=== PATIENT | female | born 1980 | race Caucasian/White ===

== ENCOUNTER 2018-04-07 12:54 | Emergency (ER) | payer MEDICAID ==
[~2018-04-07] VITALS: Ht 157.5 cm; Wt 76.4 kg
[~2018-04-07 12:54] MED LIST: GLIP5TAB4 PO; METF500T PO
[2018-04-07 13:03] VITALS: BP 126/89
--- NOTE | 2018-04-07 13:08 | NUR ---
Patient ambulated to bed 1. RN evaluating patient at bedside.
--- NOTE | 2018-04-07 13:10 | NUR ---
REPORT GIVEN TO RAJI RODAS
--- NOTE | 2018-04-07 13:15 | NUR ---
PATIENT PRESENTS TO ED WITH NUMBNESS AND TINGLING OF BILATERAL ARMS AND FACE X 1 DAY. PATIENT STATES IT STARTED LAST NIGH IN THE ARMS AND TODAY IT SPREAD TO HER FACE. PATIENT NEGATIVE FOR RADIO MECHANIC HELPER ASYMETRY, NEGATIVE FOR FACIAL ASYMETRY. DENIES N/V/D; SKIN IS PINK/WARM/DRY; AAOX4 WITH EVEN AND STEADY GAIT; LUNGS CLEAR BL; HR EVEN AND REGULAR; PT DENIES ANY FEVER, CP, SOB, OR COUGH AT THIS TIME; PATIENT STATES PAIN OF 0/10 AT THIS TIME; VSS; PATIENT POSITIONED FOR COMFORT; HOB ELEVATED; BEDRAILS UP X1; BED DOWN. ER MD MADE AWARE OF PT STATUS.
[2018-04-07] MEDS ORDERED: NACL 0.9% 1,000 ML IV SCH (13:41)
[2018-04-07] MEDS ORDERED: LORazepam 2 MG/ML VIAL IVP ONE (13:45)
[2018-04-07 14:07] LABS: BASOPHILS # (AUTO) 0.1 K/uL (0.00-0.22); BASOPHILS % (AUTO) 1.4 % (0.0-2.0); EOSINOPHILS % (AUTO) 0.1 % (0.0-4.0); HEMATOCRIT 36.7 % (36-48); HEMOGLOBIN 12.7 g/dL (12.0-16.0); MEAN CORPUSCULAR HEMOGLOBIN 29 pg (27-31); MEAN CORPUSCULAR HGB CONC 35 g/dL (33-37); MEAN CORPUSCULAR VOLUME 84.5 fL (80-94); MONOCYTES # (AUTO) 0.8 K/uL (0.8-1.0); MONOCYTES % (AUTO) 8.8 % (1.7-9.3); NEUTROPHILS # (AUTO) 6.2 K/uL (1.8-7.7); NEUTROPHILS % (AUTO) 67.7 % (42.2-75.2); PLATELET COUNT (AUTO) 210 K/uL (140-450); RED BLOOD CELL COUNT(AUTO) 4.35 MIL/uL (4.20-5.40); RED CELL DISTRIBUTION WIDTH 13.2 % (11.6-13.7); WHITE BLOOD COUNT (AUTO) 9.2 K/uL (4.8-10.8)
--- NOTE | 2018-04-07 14:18 | NUR ---
Patient taken to CT scan by
[2018-04-07 14:22] LABS: MAGNESIUM 1.4 mg/dL (1.8-2.4)
--- NOTE | 2018-04-07 14:25 | NUR ---
Patient returned from CT scan. RN re-evaluating patient at bedside.
[2018-04-07 14:28] LABS: ALBUMIN 3.6 g/dL (3.4-5.0); ASPARTATE AMINOTRANSFERASE 21 U/L (15-37); CARBON DIOXIDE 27.2 mmol/L (21-32); CHLORIDE 103 mmol/L (98-107); CREATININE 0.8 mg/dL (0.6-1.3); GFR ARICAN-AMERICAN 103 mL/min (>90); GLUCOSE 227 mg/dL (74-106); SODIUM SERUM 143 mmol/L (136-145); TOTAL BILIRUBIN 0.5 mg/dL (0.0-1.0); UREA NITROGEN, BLOOD 6 mg/dL (7-18)
[2018-04-07 14:29] LABS: ANION GAP 15.8 (8-16)
[2018-04-07] MEDS ORDERED: POTASSIUM CHLORIDE 10 MEQ TABER PO ONE (14:55)
[2018-04-07] MEDS ORDERED: MAGNESIUM SULFATE 50% 1,000 MG in NACL 0.9% 50 ML IV ONE (14:55)
--- NOTE | 2018-04-07 14:56 | NUR ---
Note undone in EDM - 04/07/18 at 1459 by ALANA PATIENT PRESENTS TO ED WITH NUMBNESS AND TINGLING OF BILATERAL ARMS AND FACE X 1 DAY. PATIENT STATES IT STARTED LAST NIGH IN THE ARMS AND TODAY IT SPREAD TO HER FACE. PATIENT NEGATIVE FOR HOTBED OPERATOR ASYMETRY, NEGATIVE FOR FACIAL ASYMETRY. DENIES N/V/D; SKIN IS PINK/WARM/DRY; AAOX4 WITH EVEN AND STEADY GAIT; LUNGS CLEAR BL; HR EVEN AND REGULAR; PT DENIES ANY FEVER, CP, SOB, OR COUGH AT THIS TIME; PATIENT STATES PAIN OF 0/10 AT THIS TIME; VSS; PATIENT POSITIONED FOR COMFORT; HOB ELEVATED; BEDRAILS UP X1; BED DOWN. ER MD MADE AWARE OF PT STATUS.
[2018-04-07] MEDS ORDERED: MAGNESIUM SULFATE 50% 1000 MG/2 ML VIAL IV ONE (15:05)
[2018-04-07 15:21] LABS: BILIRUBIN,URINE NEGATIVE (NEGATIVE); BLOOD, URINE TRACE-I (NEGATIVE); COLOR,URINE YELLOW (YELLOW); LEUKOCYTE ESTERASE ,URINE NEGATIVE (NEGATIVE); NITRITE, URINE POSITIVE (NEGATIVE); UGLUCOSE 3+ (NEGATIVE)
[2018-04-07 15:32] LABS: APPEARANCE,URINE CLOUDY (CLEAR)
[2018-04-07 15:39] LABS: BARBITURATE, URINE NEG. ng/ml (NEG <=200); BENZODIAZEPINE, URINE NEG. ng/mL (NEG <=200); CANNABINOID, URINE NEG. ng/mL (NEG <=50); COCAINE, URINE NEG. ng/mL (NEG <=300); OPIATE, URINE NEG. ng/mL (NEG <=2000); PHENCYCLIDINE SCREEN,URINE NEG. ng/mL (NEG <=25)
[2018-04-07 16:08] LABS: RBC,URINE 3-10 (FEW) /HPF (0-5)
--- NOTE | 2018-04-07 16:18 | NUR ---
Patient discharged with v/s stable. Written and verbal after care instructions given and explained. Patient alert, oriented and verbalized understanding of instructions. Ambulatory with steady gait. All questions addressed prior to discharge. ID band removed. Patient advised to follow up with PMD. Rx of VISTARIL given. Patient educated on indication of medication including possible reaction and side effects. Opportunity to ask questions provided and answered.
[2018-04-07 16:28] VITALS: BP 133/66
== END 2018-04-07 16:18 | disposition home or self-care (01) ==
LOC: MED 12:54
DX: R20.2 Paresthesia of skin (principal); E87.6 Hypokalemia; E83.42 Hypomagnesemia; E11.9 Type 2 diabetes mellitus without complications; F41.9 Anxiety disorder, unspecified
CPT/HCPCS: 36415; 70450; 71045; 80053; 80305; 81001; 82150; 82550; 83690; 83735; 84484; 84703; 85025; 87086; 87186; 93005; 96365; 96375; 99285; G0482; J2060; J3475; J7030

== ENCOUNTER 2019-05-26 17:20 | Emergency (ER) | payer MEDICAID ==
[~2019-05-26] VITALS: Ht 157.5 cm; Wt 75.7 kg
[2019-05-26 17:40] VITALS: BP 114/63
--- NOTE | 2019-05-26 17:47 | NUR ---
PT AMBULATED TO LOBBY AT THIS TIME, VSS, BLEEDING CONTROLLED WITH BANDAIDE
--- NOTE | 2019-05-26 19:25 | NUR ---
PT AMBULATED TO BED
--- NOTE | 2019-05-26 19:27 | NUR ---
38/F PRESENTED TO ER. AMBULATORY. STEADY GAIT. C/O LACERATION TO RT 3RD DIGIT. PT WAS CUTTING FOOD WHEN SHE CUT HER FINGER 05/26/19. PAIN 01/22. BLEEDING CONTROLED WITH BANDAID. TOOK NO MEDS TO RELIEVE PAIN. LAST TETANUS IN 2013. HX DM, HLD. RX METFORMIN, GLIPIZIDE, JANUVIA, ATROVASTATIN, VIT D, LOSARTAN
[2019-05-26] MEDS ORDERED: LIDOCAINE 1% 500 MG/50 ML VIAL INJ SCH (20:20)
[2019-05-26] MEDS ORDERED: ACETAMINOPHEN 325 MG TAB PO ONE (20:20)
[2019-05-26] MEDS ORDERED: LIDOCAINE MPF 1% - 5 mL VIAL 10 ML ONE (20:45)
--- NOTE | 2019-05-26 21:05 | NUR ---
AT BEDSIDE FOR SUTURE
[2019-05-26] MEDS ORDERED: NEOMYCIN/POLYMYXIN/BACITRACIN 0.9 GM/1 PKT TP ONE (21:35)
[2019-05-26 21:46] VITALS: BP 113/56
--- NOTE | 2019-05-26 21:46 | NUR ---
Patient discharged with v/s stable. Written and verbal after care instructions given and explained. Patient alert, oriented and verbalized understanding of instructions. Ambulatory with steady gait. All questions addressed prior to discharge. ID band removed. Patient advised to follow up with PMD. Rx of IBUPROFEN, BACITRACIN given. Patient educated on indication of medication including possible reaction and side effects. Opportunity to ask questions provided and answered. ACCOMPANIED BY .
== END 2019-05-26 21:46 | disposition home or self-care (01) ==
LOC: MED 17:20
DX: S61.212A Laceration without foreign body of right middle finger without damage to nail, initial encounter (principal); E11.9 Type 2 diabetes mellitus without complications; E78.5 Hyperlipidemia, unspecified; Z79.84 Long term (current) use of oral hypoglycemic drugs; W26.0XXA Contact with knife, initial encounter; Y93.89 Activity, other specified; Y92.89 Other specified places as the place of occurrence of the external cause; Y99.8 Other external cause status
CPT/HCPCS: 12001; 82948; 99283; J2001

== ENCOUNTER 2019-09-22 21:38 | Inpatient (IN) | payer MEDICAID ==
[~2019-09-22] VITALS: Ht 157.5 cm; Wt 76.7 kg
[2019-09-22 21:50] VITALS: BP 130/77
--- NOTE | 2019-09-22 22:55 | NUR ---
PT AMBULATED TO ER BED 06
--- NOTE | 2019-09-22 23:10 | NUR ---
38 Y/O FEMALE C/O RIGHT SIDE NUMBNESS AND LEFT SIDE EYE TEARS X 1000 TODAY. FAST DONE: FACIAL DROOPING ON RIGHT SIDE BY MOUTH, ARMS STRENGTH EQUAL AND SYMMETRICAL NO TRIFTING NOTED, SPEECH CLEAR, TIME AT 1000 ONSET. VSS. PT STATES HER LEFT EYE BEEN GETTING TEARY AND SHE SAYS WHEN SHE WAS RINSING HER MOUTH THAT THE MOUTH WASH WAS COMING OUT OF HER RIGHT SIDE OF THE CORNER OF HER MOUTH. WHEN ASKED TO SMILE BOTH FACE MUSCLE SHOWS SYMMETRY. ARMS AND LEG STRENGTH EQUL AND SYMMTRICAL. PERRLA 3MM BRISK BILAT. STEADY GAIT. NKA. PMH: DM
--- NOTE | 2019-09-22 23:33 | NUR ---
Dr. Vela examining patient.
--- NOTE | 2019-09-22 23:38 | NUR ---
RADIOLOGY MADE AWARE OF DR. HAYWARD'S REQUEST FOR STAT CT HEAD
--- NOTE | 2019-09-22 23:52 | NUR ---
PT TAKEN FOR STAT CT
[2019-09-22 23:54] LABS: BASOPHILS % (AUTO) 0.5 % (0.0-2.0); EOSINOPHILS # (AUTO) 0.1 K/uL (0-0.4); EOSINOPHILS % (AUTO) 1.3 % (0.0-4.0); HEMATOCRIT 39.1 % (36-48); HEMOGLOBIN 13.2 g/dL (12.0-16.0); LYMPHOCYTES # (AUTO) 2.8 K/uL (2.5-16.5); LYMPHOCYTES % (AUTO) 37.2 % (20.5-51.1); MEAN CORPUSCULAR HEMOGLOBIN 29 pg (27-31); MEAN CORPUSCULAR HGB CONC 34 g/dL (33-37); MONOCYTES # (AUTO) 0.7 K/uL (0.8-1.0); MONOCYTES % (AUTO) 9.4 % (1.7-9.3); NEUTROPHILS # (AUTO) 3.9 K/uL (1.8-7.7); NEUTROPHILS % (AUTO) 51.6 % (42.2-75.2); PLATELET COUNT (AUTO) 207 K/uL (140-450); RED BLOOD CELL COUNT(AUTO) 4.49 MIL/uL (4.20-5.40); RED CELL DISTRIBUTION WIDTH 12.8 % (11.6-13.7); WHITE BLOOD COUNT (AUTO) 7.5 K/uL (4.8-10.8)
--- NOTE | 2019-09-22 23:54 | NUR ---
BLOOD DRAWS DONE. PT TRANSFER TO CT VIA [facility].
[2019-09-23 00:25] LABS: ALBUMIN 3.9 g/dL (3.4-5.0); ANION GAP 16.4 (8-16); CARBON DIOXIDE 25.3 mmol/L (21-32); POTASSIUM 3.7 mmol/L (3.5-5.1); TOTAL BILIRUBIN 0.4 mg/dL (0.0-1.0)
[2019-09-23 00:33] LABS: CREATINE KINASE MB 0.4 ng/mL (0-3.6)
--- NOTE | 2019-09-23 00:46 | NUR ---
Jama salter in [facility] - 09/23/19 at 0052 by ERIK PT RETURN FROM CT
--- NOTE | 2019-09-23 00:46 | NUR ---
PT RETURNED FROM CT VIA [facility].
[2019-09-23 00:47] LABS: PROTHROMBIN TIME 9.1 secs (10.8-13.4)
--- NOTE | 2019-09-23 00:57 | NUR ---
SRIKANTH HANSON AT BEDSIDE DOING EKG.
[2019-09-23] MEDS ORDERED: MORPHINE SULFATE 2 MG/ML SYR IVP PRN (02:55)
[2019-09-23] MEDS ORDERED: ZOLPIDEM 5 MG TAB PO PRN (02:55)
[2019-09-23] MEDS ORDERED: HYDROcodone/APAP 5/325 MG 1 TAB TAB PO PRN (02:55)
[2019-09-23] MEDS ORDERED: DEXTROSE 50% 50 ML SYR IVP PRN ×2 (02:55→10:00)
[2019-09-23] MEDS ORDERED: DOCUSATE SODIUM 100 MG GELCAP PO PRN (02:55)
[2019-09-23] MEDS ORDERED: LORazepam 2 MG/ML VIAL IM/IVP PRN (02:55)
[2019-09-23] MEDS ORDERED: INSULIN LISPRO SLIDING SCALE 100 UNITS/ML VIAL SUBQ PRN (02:55)
[2019-09-23] MEDS ORDERED: ONDANSETRON 4 MG/2 ML VIAL IM/IVP PRN (02:55)
[2019-09-23] MEDS ORDERED: ASPIRIN 325 MG TAB PO ONE (03:00)
[2019-09-23] MEDS ORDERED: predniSONE 20 MG TAB PO ONE (03:00)
[2019-09-23] MEDS ORDERED: ACYCLOVIR 200 MG CAP PO ONE (03:00)
[2019-09-23] MEDS ORDERED: MECLIZINE 25 MG TAB PO PRN (03:55)
[2019-09-23] MEDS: NACL 0.9% 1,000 ML IV SCH ×2 (04:18→16:22)
--- NOTE | 2019-09-23 04:30 | NUR ---
RT AT BEDSIDE DRAWING ABG.
[2019-09-23 04:54] LABS: BARBITURATE, URINE NEG. ng/ml (NEG <=200); BENZODIAZEPINE, URINE NEG. ng/mL (NEG <=200); CANNABINOID, URINE NEG. ng/mL (NEG <=50); COCAINE, URINE NEG. ng/mL (NEG <=300); OPIATE, URINE NEG. ng/mL (NEG <=2000); PHENCYCLIDINE SCREEN,URINE NEG. ng/mL (NEG <=25)
[2019-09-23 06:04] LABS: BASOPHILS % (AUTO) 0.4 % (0.0-2.0); EOSINOPHILS # (AUTO) 0.1 K/uL (0-0.4); EOSINOPHILS % (AUTO) 1.2 % (0.0-4.0); HEMOGLOBIN 12.8 g/dL (12.0-16.0); LYMPHOCYTES % (AUTO) 24.3 % (20.5-51.1); MEAN CORPUSCULAR HEMOGLOBIN 30 pg (27-31); MEAN CORPUSCULAR HGB CONC 34 g/dL (33-37); MEAN CORPUSCULAR VOLUME 87.4 fL (80-94); MONOCYTES # (AUTO) 0.5 K/uL (0.8-1.0); MONOCYTES % (AUTO) 6.5 % (1.7-9.3); NEUTROPHILS # (AUTO) 5.5 K/uL (1.8-7.7); NEUTROPHILS % (AUTO) 67.6 % (42.2-75.2); PLATELET COUNT (AUTO) 190 K/uL (140-450); RED BLOOD CELL COUNT(AUTO) 4.35 MIL/uL (4.20-5.40); RED CELL DISTRIBUTION WIDTH 13.1 % (11.6-13.7); WHITE BLOOD COUNT (AUTO) 8.1 K/uL (4.8-10.8)
[2019-09-23] MEDS: ACYCLOVIR 200 MG CAP PO SCH ×5 (06:06→20:16)
--- NOTE | 2019-09-23 06:08 | NUR ---
ZOVIRAX GIVEN. INSTRUCTED PT TO BE NPO.
[2019-09-23 06:10] LABS: ANION GAP 15.6 (8-16); CARBON DIOXIDE 23.1 mmol/L (21-32); CREATININE 0.7 mg/dL (0.6-1.3); POTASSIUM 3.7 mmol/L (3.5-5.1)
[2019-09-23] MEDS ORDERED: LOSA50TA66 PO (06:16)
[2019-09-23] MEDS ORDERED: CHOL200035 PO (06:16)
[2019-09-23] MEDS ORDERED: EZET1TAB24 PO (06:16)
[2019-09-23] MEDS ORDERED: SITA100T8 PO (06:16)
--- NOTE | 2019-09-23 06:17 | NUR ---
MED REC DONE.
--- NOTE | 2019-09-23 06:21 | NUR ---
BIANCA ASSESSMENT DONE AT BEDSIDE. ORTHOSTATIC BP TEST: LAYING DOWN BP WAS 117/64 ON RIGHT ARM, AND STANDING UP BP ON RIGHT ARM WAS 120/71.
[2019-09-23 06:24] LABS: CHOL/HDL RATIO 3.7 (1-4.5); MAGNESIUM 1.5 mg/dL (1.8-2.4); PHOSPHORUS 3.6 mg/dL (2.5-4.9); THYROID STIMULATING HORMONE 2.35 uIU/mL (0.34-3.74)
[2019-09-23 06:29] LABS: APPEARANCE,URINE HAZY (CLEAR); BILIRUBIN,URINE NEGATIVE (NEGATIVE); BLOOD, URINE NEGATIVE (NEGATIVE); COLOR,URINE YELLOW (YELLOW); LEUKOCYTE ESTERASE ,URINE NEGATIVE (NEGATIVE); NITRITE, URINE POSITIVE (NEGATIVE); UGLUCOSE 2+ (NEGATIVE)
[2019-09-23 06:56] LABS: RBC,URINE NONE SEEN /HPF (0-5)
[2019-09-23 06:57] LABS: WBC,URINE 0-5 /HPF (0-5)
--- NOTE | 2019-09-23 07:15 | NUR ---
PT ARRIVED ON THE UNIT. PT ARRIVED ON THE UNIT VIA GURNEY. PT AMBULATED WITH A STEADY GAIT TO THE BATHROOM. RECEIVED BEDSIDE REPORT FROM GAS OPERATOR. PT APPEARS STABLE AND IN NO APPARENT DISTRESS. ALL SAFETY MEASURES ARE IN PLACE. ORIENTED PT TO THE UNIT. PERFORMED HEAD TO TOE ASSESSMENT. WILL CONTINUE TO MONITOR.
--- NOTE | 2019-09-23 07:15 | NUR ---
Patient will be admitted to care of dr. de dios. Admited to tele. Will go to room 108b. Belongings list completed. Report to jannette maldonado.
[2019-09-23] MEDS ORDERED: BLOOD GLUCOSE MONITORING 1 DEV DEV FS SCH (07:30)
[2019-09-23 08:00] VITALS: BP 125/71
[2019-09-23] MEDS: predniSONE 20 MG TAB PO SCH (09:07)
--- NOTE | 2019-09-23 09:25 | NUR ---
FREQUENT ROUNDING ON PT PT APPEARS STABLE AND IN NO APPARENT DISTRESS. ALL SAFETY MEASURES ARE IN PLACE WILL CONTINUE TO MONITOR.
--- NOTE | 2019-09-23 10:00 | NUR ---
PATIENT HAS BEEN SCREENED AND CATEGORIZED MODERATE NUTRITION RISK. PATIENT WILL BE SEEN WITHIN 3-5 DAYS OF ADMISSION. 09/25/19 09/27/[address]
--- NOTE | 2019-09-23 11:30 | NUR ---
FREQUENT ROUNDING ON PT PT APPEARS STABLE AND IN NO APPARENT DISTRESS. ALL SAFETY MEASURES ARE IN PLACE WILL CONTINUE TO MONITOR.
[2019-09-23 12:09] VITALS: BP 114/57
[2019-09-23] MEDS: BLOOD GLUCOSE MONITORING 1 DEV DEV FS SCH ×3 (12:24→20:18)
[2019-09-23] MEDS: ACETAMINOPHEN 325 MG TAB PO PRN ×2 (12:25→17:58)
[2019-09-23] MEDS: INSULIN LISPRO SLIDING SCALE 100 UNITS/ML VIAL SUBQ PRN ×3 (12:27→20:20)
--- NOTE | 2019-09-23 13:04 | NUR ---
FREQUENT ROUNDING ON PT PT APPEARS STABLE AND IN NO APPARENT DISTRESS. ALL SAFETY MEASURES ARE IN PLACE WILL CONTINUE TO MONITOR.
--- NOTE | 2019-09-23 15:34 | NUR ---
FREQUENT ROUNDING ON PT PT APPEARS STABLE AND IN NO APPARENT DISTRESS. ALL SAFETY MEASURES ARE IN PLACE WILL CONTINUE TO MONITOR
[2019-09-23 16:05] VITALS: BP 124/69
[2019-09-23] MEDS: MAG SULF 2000 MG/WATER PREMIX 100 ML IV SCH ×2 (16:15→18:00)
--- NOTE | 2019-09-23 17:30 | NUR ---
FREQUENT ROUNDING ON PT PT APPEARS STABLE AND IN NO APPARENT DISTRESS. ALL SAFETY MEASURES ARE IN PLACE WILL CONTINUE TO MONITOR.
--- NOTE | 2019-09-23 19:20 | NUR ---
ENDORSED PT TO PM RN. PT APPEARS STABLE AND IN NO APPARENT DISTRESS. ALL SAFETY MEASURES ARE IN PLACE WILL CONTINUE TO MONITOR.
--- NOTE | 2019-09-23 19:21 | NUR ---
REPORT RECEIVED FROM AM NURSE AT BEDSIDE. PT IN STABLE CONDITION. AAOX4. INTRODUCED SELF TO PT. BOARD UPDATED. NO COMPLAINTS OF PAIN. NO SOB. AFEBRILE. PT IS ITALIAN SPEAKING. PT IS AMBULATORY. IV SITE L AC 24G RUNNING NS@60ML/HR PATENT AND INTACT. SKIN WARM, DRY, AND INTACT WITH NO OPEN WOUNDS. BED LOCKED IN LOW POSITION. CALL [place] WITHIN REACH. SAFETY PRECAUTION IN PLACE. ALL NEEDS MET AT THIS TIME.
[2019-09-23 20:00] VITALS: BP 103/58
--- NOTE | 2019-09-23 20:16 | NUR ---
ZOVIRAX GIVEN PO. BS 242. 4 UNITS OF HUMALOG GIVEN. PT TOLERATED WELL.
--- NOTE | 2019-09-23 22:10 | NUR ---
PT SLEEPING COMFORTABLY BUT AROUSABLE. NO S/S OF DISTRESS NOTED. WILL CONTINUE TO MONITOR.
--- NOTE | 2019-09-23 23:45 | NUR ---
PT SLEEPING COMFORTABLY BUT AROUSABLE. NO S/S OF DISTRESS NOTED. TELE MONITORING. WILL CONTINUE TO MONITOR.
[2019-09-24] VITALS: BP 90/51
--- NOTE | 2019-09-24 01:30 | NUR ---
PT SLEEPING COMFORTABLY BUT AROUSABLE. NO S/S OF DISTRESS NOTED. NO COMPLAINTS OF PAIN. NO SOB. AFEBRILE. WILL CONTINUE TO MONITOR.
--- NOTE | 2019-09-24 03:15 | NUR ---
PT SLEEPING COMFORTABLY BUT AROUSABLE. NO S/S OF DISTRESS NOTED. RESPIRATIONS EVEN, UNLABORED, AND WNL. WILL CONTINUE TO MONITOR.
[2019-09-24 04:00] VITALS: BP 128/86
[2019-09-24] MEDS: ACYCLOVIR 200 MG CAP PO SCH ×3 (05:00→13:39)
--- NOTE | 2019-09-24 05:00 | NUR ---
ACYCLOVIR GIVEN PO. BS 252. 6 UNITS OF HUMALOG GIVEN. PT TOLERATED WELL.
[2019-09-24] MEDS: BLOOD GLUCOSE MONITORING 1 DEV DEV FS SCH ×2 (05:04→12:24)
[2019-09-24] MEDS: INSULIN LISPRO SLIDING SCALE 100 UNITS/ML VIAL SUBQ PRN ×2 (05:10→13:26)
--- NOTE | 2019-09-24 06:40 | NUR ---
PT AWAKE AND ALERT IN BED. NO S/S OF DISTRESS NOTED. PT IN STABLE CONDITION.
[2019-09-24 06:52] LABS: BASOPHILS % (AUTO) 0.4 % (0.0-2.0); EOSINOPHILS % (AUTO) 0.6 % (0.0-4.0); HEMATOCRIT 40.3 % (36-48); HEMOGLOBIN 13.6 g/dL (12.0-16.0); LYMPHOCYTES % (AUTO) 36.6 % (20.5-51.1); MEAN CORPUSCULAR HEMOGLOBIN 29 pg (27-31); MEAN CORPUSCULAR HGB CONC 34 g/dL (33-37); MEAN CORPUSCULAR VOLUME 86.8 fL (80-94); MONOCYTES # (AUTO) 0.6 K/uL (0.8-1.0); MONOCYTES % (AUTO) 7.6 % (1.7-9.3); NEUTROPHILS # (AUTO) 4.5 K/uL (1.8-7.7); NEUTROPHILS % (AUTO) 54.8 % (42.2-75.2); PLATELET COUNT (AUTO) 200 K/uL (140-450); RED BLOOD CELL COUNT(AUTO) 4.64 MIL/uL (4.20-5.40); RED CELL DISTRIBUTION WIDTH 12.8 % (11.6-13.7); WHITE BLOOD COUNT (AUTO) 8.1 K/uL (4.8-10.8)
[2019-09-24 07:29] LABS: ANION GAP 15.7 (8-16); CARBON DIOXIDE 22.6 mmol/L (21-32); CREATININE 0.6 mg/dL (0.6-1.3); POTASSIUM 3.3 mmol/L (3.5-5.1)
[2019-09-24 07:30] LABS: PHOSPHORUS 3.1 mg/dL (2.5-4.9)
[2019-09-24 08:00] VITALS: BP 120/75
[2019-09-24] MEDS ORDERED: IBUPROFEN 600 MG TAB PO PRN (08:00)
[2019-09-24 08:09] LABS: T4 (THYROXINE) 6.7 ug/dL (4.5-12.0)
[2019-09-24] MEDS: predniSONE 20 MG TAB PO SCH (09:02)
[2019-09-24 12:00] VITALS: BP 121/78
[2019-09-24] MEDS: NACL 0.9% 1,000 ML IV SCH (12:09)
[2019-09-24] MEDS ORDERED: PRED20TA5 PO (12:52)
[2019-09-24] MEDS ORDERED: ACYC400T PO (12:52)
[2019-09-24] MEDS ORDERED: SULF-58 PO (12:57)
[2019-09-24 15:46] VITALS: BP 131/80
[2019-09-24 16:00] VITALS: BP 131/80
--- NOTE | 2019-09-24 16:07 | NUR ---
PATIENT WITH ORDERS FOR DISCHARGE.FOLLOW UP WITH THE PRIMARY CARE PHYSICIAN PATIENT IS AWARE.
--- NOTE | 2019-09-24 16:29 | NUR ---
DISCHARGE INSTRUCTIONS GIVEN TO PATIENT. WITH INSTRUCTIONS TO FOLLOW UP WITH THE PRIMARY CARE FOR CONTINUED CARE. DISCHARGE PER WHEELCHAIR IN GOOD CONDITION WITH MEDICATIONS SENT TO THE PATIENT PROFFERED PHARMACY. IV CANNULA DISCONTINUED AND WITH NO SIGNS OF INFECTIONS. EXPRESSED UNDERSTANDING
== END 2019-09-24 16:30 | disposition home or self-care (01) | DRG 48 ==
LOC: MED 21:38 → MTU 09-23 03:57
PROVIDERS: ADMIT General Practice; ATTEND General Practice
DX: G90.8 Other disorders of autonomic nervous system (principal); E83.42 Hypomagnesemia; E66.9 Obesity, unspecified; G51.0 Bell's palsy; N39.0 Urinary tract infection, site not specified; E11.9 Type 2 diabetes mellitus without complications; I10 Essential (primary) hypertension; E78.1 Pure hyperglyceridemia; Z68.30 Body mass index [BMI] 30.0-30.9, adult; Z71.3 Dietary counseling and surveillance; Z79.899 Other long term (current) drug therapy; Z79.84 Long term (current) use of oral hypoglycemic drugs; Z82.3 Family history of stroke; Z82.49 Family history of ischemic heart disease and other diseases of the circulatory system; Z83.3 Family history of diabetes mellitus
CPT/HCPCS: 36415; 36600; 70450; 71045; 80048; 80053; 80305; 81001; 81025; 82150; 82550; 82553; 82803; 83036; 83690; 83735; 83880; 84100; 84134; 84436; 84443; 84484; 85025; 85610; 85730; 87081; 87086; 93005; 93880; 99285; J0696; J1815; J2270; J3475; J7030; J7060; J7512; Q0092; Q9967

== ENCOUNTER 2019-12-27 13:00 | Emergency (ER) | payer MEDICAID ==
[~2019-12-27] VITALS: Ht 165.1 cm; Wt 74.8 kg
[~2019-12-27 13:00] MED LIST changes: +ACYC400T PO; +CHOL200035 PO; +EZET1TAB24 PO; +LOSA50TA66 PO; +PRED20TA5 PO; +SITA100T8 PO; +SULF-58 PO
[2019-12-27 13:03] VITALS: BP 126/73
--- NOTE | 2019-12-27 13:03 | NUR ---
PT. BIBA TAKEN TO BED 10
[2019-12-27] MEDS ORDERED: KETOROLAC 60 MG/2 ML VIAL IM ONE (13:10)
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
--- NOTE | 2019-12-27 14:11 | NUR ---
DR FERRARI SPEAKING WITH PT AT BEDSIDE
[2019-12-27 14:23] VITALS: BP 111/68
== END 2019-12-27 14:20 | disposition home or self-care (01) ==
LOC: MED 13:00
DX: S16.1XXA Strain of muscle, fascia and tendon at neck level, initial encounter (principal); S93.401A Sprain of unspecified ligament of right ankle, initial encounter; E11.9 Type 2 diabetes mellitus without complications; V49.88XA Car occupant (driver) (passenger) injured in other specified transport accidents, initial encounter; Y93.89 Activity, other specified; Y92.89 Other specified places as the place of occurrence of the external cause; Y99.8 Other external cause status; Z79.899 Other long term (current) drug therapy
CPT/HCPCS: 72040; 72100; 73610; 96372; 99284; J1885